=== PATIENT | female | born 1975 ===

== ENCOUNTER 2024-12-01 10:21 | Outpatient (CLI) | payer OTHER, SELFPAY ==
--- OUTSIDE RECORDS SUMMARY | 2024-12-01 10:50 | XMS_ITS | Clinical Summary ---
Author Organization [facility] [employer] Address [address] [place] [address] Care Team Providers Care Ppa Teacher Name Role Phone Jakub Ty MD Primary Care Provider [phone] Source Comments [facility] [employer],non-owned Affiliates and Associated Physician Practices is amultiple site organization consisting of ambulatory clinics and hospital sitesin [place], [place], [place] and [place]. This disclosure is being madepursuant to the Care Everywhere program and may not contain all information available regarding this patient. Last updated 18.[facility] [employer] Allergies No known active allergies Medications * Be aware that medications may not be up to date on this document. Alwaysverify current medications with the patient. Medication Sig Dispensed Refills Start Date End Date Status furosemide (Lasix) 20 MG tablet Take 1 (one) tablet by mouth once daily Active oxyBUTYnin (Ditropan) 5 MG tablet Take 1 (one) tablet by mouth 2 times daily Active potassium chloride ER (Klor-Con M) 10 MEQ tablet Take 1 (one) tablet by mouth once daily Active Active Problems Problem Noted Date Diagnosed Date Endometrial cancer 02/06/2024 Encounters Date Type Department Care Team Description 09/17/2024 Telephone [facility] [address] [place] [address] Suze Maurice RN Follow-up 09/09/2024 11:30 AM REPAIR ARMATURE WINDER HELPER Office Visit [facility] [address] [place] [address] Jaleel Mcmillan MD Endometrial cancer (HCC) (Primary Dx) 09/09/2024 Orders Only [facility] [address] [place] [address] Suze Maurice RN Retained organic fragments 09/09/2024 Orders Only [facility] [address] [place] [address] Suze Maurice RN Endometrial cancer (HCC) 09/09/2024 Travel from Last 3 Months Social History Tobacco Use Types Packs/Day Years Used Date Smoking Tobacco: Never Smokeless Tobacco: Former Quit: 1990 Tobacco Cessation:Counseling Given: Not Answered Alcohol Use Standard Drinks/Week Comments Not Currently 0 (1 standard drink = 0.6 oz pur e alcohol) PHQ-2 Answer Date Recorded Patient Health Questionnaire-2 Score 0 02/24/2024 Sex and Gender Information Value Date Recorded Sex Assigned at Not on file Gender Identity Not on file Sexual Orientation Not on file Last Filed Vital Signs Vital Sign Reading Time Taken Comments Blood Pressure 118/70 09/09/2024 11:39 AM REPAIR ARMATURE WINDER HELPER Pulse 84 02/24/2024 8:34 AM CDT Temperature 36.5 ??C (97.7 ??F) 02/07/2024 5:17 AM CD T Respiratory Rate 18 02/07/2024 5:17 AM CDT Oxygen Saturation 97% 02/07/2024 5:17 AM CDT Inhaled Oxygen Concentration - - Weight 151.2 kg (333 lb 6.4 oz) 024 11:39 AM REPAIR ARMATURE WINDER HELPER Height 175.3 cm (5' 9 ) 09/09/2024 11:3 9 AM REPAIR ARMATURE WINDER HELPER Body Mass Index 49.23 09/09/2024 11:39 AM REPAIR ARMATURE WINDER HELPER Plan of Treatment Upcoming Encounters Date Type Department Care Team (Late st Contact Info) Description 03/10/2025 10:00 AM CDT Office Visit [facility] [address] [place] [address] Jaleel Mcmillan MD [address] [place] [address] Health Maintenance Due Date Last Done Comments COLOGUARD (AGES 45-75) - COL ON CA SCREENING 1973 COLON MONITORING 1973 COLONOSCOPY - COLON CA SCREENING 1973 CT COLONOGRAPHY - COLON CA SCREENING 1973 Colorectal Cancer Screening 1973 FIT - COLON CA SCREENING 1973 FLEX SIG - COLON CA SCREENING 1973 LIPID TESTING 1973 HIV SCREENING 01/26/1988 HEPATITIS C SCREENING 01/21/1991 DTAP/TDAP/TD VACCINES (1 - Tdap) 01/26/1992 HEPATITIS B VACCINE (1 of 3 - 19+ 3-dose series) 01/26/1992 PNEUMOCOCCAL VACCINE 50+ (1 of 1 - PCV) 2023 ZOSTER VACCINE (1 of 2) 2023 COVID-19 VACCINE (3 - 2023-2 5 season) 2024 09/29/2021, 09/08/2021 INFLUENZA VACCINE (#1) 2024 DEPRESSION SCREENING 10/28/2024 02/24/2024 MAMMOGRAM 04/06/2026 04/06/2024, 04/06/2024 SCREENING FOR DIABETES 02/06/2027 02/07/2024 HIB VACCINE Aged Out No longer eligi ble based on patient's age to complete this topic HPV VACCINE Aged Out No longer eligi ble based on patient's age to complete this topic MENINGOCOCCAL (Group B) VACCINE Aged Out No longer eligible b ased on patient's age to complete this topic MENINGOCOCCAL VACCINE Aged Out No zelda cynthia eligible based on patient's age to complete this topic PNEUMOCOCCAL VACCINE Aged Out No long er eligible based on patient's age to complete this topic Procedures Procedure Name Priority Date/Time Associated Diagnosis Comments BASIC METABOLIC PANEL (CALCIUM TOTAL) AM Draw 02/07/2024 4:19 AM CDT Endometrial cancer (HCC) from Last 3 Months or Most Recently Relevant to Health Maintenance Results * (ABNORMAL) BASIC METABOLIC PANEL (CALCIUM TOTAL) (02/07/2024 4:19 AM CDT) [facility] Signature Glucose 127(H) 70 - 105 mg/dL 02/07/2024 5:24 AM CDT [facility] Sodium 139 136 - 145 mmol/L 02/07/2024 5:24 AM CDT [facility] Potassium 4.5 3.5 - 5.1 mmol/L 02/07/2024 5:24 AM CDT [facility] Chloride 106 98 - 107 mmol/L 02/07/2024 5:24 AM CDT [facility] CO2 25 22 - 29 mmol/L 02/07/2024 5:24 AM CDT [facility] Calcium 8.6 8.4 - 10.4 mg/dL 02/07/2024 5:24 AM CDT [facility] Anion Gap 8 6 - 16 mmol/L 02/07/2024 5:24 AM CDT [facility] BUN 10 7 - 26 mg/dL 02/07/2024 5:24 AM CDT [facility] Creatinine 0.71 0.57 - 1.11 mg/dL 02/07/2024 5:24 AM CDT [facility] eGFR by CKD-EPI >90 >=90 mL/min/1.7 3 m2 02/07/2024 5:24 AM CDT [facility] Blood BLOOD SPECIMEN / Unknown Lab Venipuncture / Unknown 02/07/2024 4:19 AM CDT 02/07/2024 5:02 AM CDT Jaleel Mcmillan MD LAB - CHEMISTRY DYANA [facility] Organization Address City/State/ZIP Co de Phone Number [facility] [address] [phone] from Last 3 Months or Most Recently Relevant to Health Maintenance Care Teams Ppa Teacher Relationship Specialty Start Date End Date Jakub Ty MD [address] [place] [id number] PCP - General Internal Medicine 09/25/23
--- OUTSIDE RECORDS SUMMARY | 2024-12-01 10:50 | XMS_ITS | Referral Summary ---
Author Organization [facility] Address [address] [place] [address] Care Team Providers Care Reproductive Surgeon Name Role Phone Jakub Ty MD Primary Care Provider [phone] Source Comments [facility],non-owned Affiliates and Associated Physician Practices is amultiple site organization consisting of ambulatory clinics and hospital sitesin [place], [place], [place] and [place]. This disclosure is being madepursuant to the Care Everywhere program and may not contain all information available regarding this patient. Last updated 18.[facility] [employer] Encounters Date Type Department Care Team Description 09/17/2024 Telephone [facility] [email or web address] [place] [phone] Suze Maurice, RN Follow-up 09/09/2024 Orders Only [facility] [address] [place] [phone] Suze Maurice, RN Retained organic fragments 09/09/2024 Orders Only [facility] [address] [place] [phone] Suze Maurice, ALF Endometrial cancer (HCC) 09/09/2024 Travel 09/09/2024 11:30 AM DRAMATIC TEACHER Office Visit [facility] [address] [place] [address] Jaleel Mcmillan MD Endometrial cancer (HCC) (Primary Dx) from Last 3 Months Allergies No known active allergies Medications * [...] Noted Date Diagnosed Date Endometrial cancer 02/06/2024 Social History Tobacco Use Types Packs/Day Years [...] Comments Blood Pressure 118/70 09/09/2024 11:39 AM DRAMATIC TEACHER Pulse 84 02/24/2024 8:34 AM CDT Temperature 36.5 ??C (97.7 ??F) 02/07/2024 5:17 AM CD T Respiratory Rate 18 02/07/2024 5:17 AM CDT Oxygen Saturation 97% 02/07/2024 5:17 AM CDT Inhaled Oxygen Concentration - - Weight 151.2 kg (333 lb 6.4 oz) 024 11:39 AM DRAMATIC TEACHER Height 175.3 cm (5' 9 ) 09/09/2024 11:3 9 AM DRAMATIC TEACHER Body Mass Index 49.23 09/09/2024 11:39 AM DRAMATIC TEACHER Plan of Treatment Upcoming Encounters Date Type Department Care Team (Late st Contact Info) Description 03/10/2025 10:00 AM CDT Office Visit [facility] [address] [facility] [address] [place] [address] Jaleel Mcmillan MD [address] [facility] [address] [place] [address] Procedures Procedure Name Priority Date/Time Associated Diagnosis Comments BASIC METABOLIC PANEL (CALCIUM TOTAL) AM Draw 02/07/2024 4:19 AM CDT Endometrial cancer (HCC) from Last 3 Months or Most Recently Relevant to Health Maintenance Results * (ABNORMAL) BASIC METABOLIC PANEL (CALCIUM TOTAL) (02/07/2024 4:19 AM CDT) Glucose 127(H) 70 - 105 mg/dL 02/07/2024 5:24 AM CDT [facility] Sodium 139 136 - 145 mmol/L 02/07/2024 5:24 AM CDT [facility] Potassium 4.5 3.5 - 5.1 mmol/L 02/07/2024 5:24 AM CDT [facility] Chloride 106 98 - 107 mmol/L 02/07/2024 5:24 AM CDT [facility] CO2 25 22 - 29 mmol/L 02/07/2024 5:24 AM CDT [facility] Calcium 8.6 8.4 - 10.4 mg/dL 02/07/2024 5:24 AM CDT [facility] Anion Gap 8 6 - 16 mmol/L 02/07/2024 5:24 AM CDT [facility] BUN 10 7 - 26 mg/dL 02/07/2024 5:24 AM CDT [facility] Creatinine 0.71 0.57 - 1.11 mg/dL 02/07/2024 5:24 AM CDT [facility] eGFR by CKD-EPI >90 >=90 mL/min/1.7 3 m2 02/07/2024 5:24 AM CDT [facility] Blood BLOOD SPECIMEN / Unknown Lab Venipuncture / Unknown 02/07/2024 4:19 AM CDT 02/07/2024 5:02 AM CDT Jaleel Mcmillan MD LAB - CHEMISTRY DYANA [facility] [place] Organization Address City/State/ZIP Co de Phone Number [facility] [address] [place] [address] from Last 3 Months or Most Recently Relevant to Health Maintenance Care Teams Reproductive Surgeon Relationship Specialty Start Date End Date Jakub Ty MD [address] [place] [id number] PCP - General Internal Medicine 09/25/23
--- OUTSIDE RECORDS SUMMARY | 2024-12-01 10:50 | XMS_ITS | Patient Health Summary ---
Author Organization [facility] Address [address] [place] [address] Care Team Providers Care Industrial Electrical Engineer Name Role Phone Jakub Ty MD Primary Care Provider [phone] Note from [facility],non-owned Affiliates and Associated Physician Practices is amultiple site organization consisting of ambulatory clinics and hospital sitesin [place], [place], [place] and [place]. This disclosure is being madepursuant to the Care Everywhere program and may not contain all information available regarding this patient. Last updated 18.[facility] Allergies No known active allergies Medications * Be aware that medications may not be up to date on this document. Alwaysverify current medications with the patient. * furosemide (Lasix) 20 MG tablet Take 1 (one) tablet by mouth once daily * oxyBUTYnin (Ditropan) 5 MG tablet Take 1 (one) tablet by mouth 2 times daily * potassium chloride ER (Klor-Con M) 10 MEQ tablet Take 1 (one) tablet by mouth once daily Active Problems Problem Noted Date Diagnosed Date [...] Comments Blood Pressure 118/70 09/09/2024 11:39 AM SCHOOL DIRECTOR Pulse 84 02/24/2024 8:34 AM CDT Temperature 36.5 ??C (97.7 ??F) 02/07/2024 5:17 AM CD T Respiratory Rate 18 02/07/2024 5:17 AM CDT Oxygen Saturation 97% 02/07/2024 5:17 AM CDT Inhaled Oxygen Concentration - - Weight 151.2 kg (333 lb 6.4 oz) 024 11:39 AM SCHOOL DIRECTOR Height 175.3 cm (5' 9 ) 09/09/2024 11:3 9 AM SCHOOL DIRECTOR Body Mass Index 49.23 09/09/2024 11:39 AM SCHOOL DIRECTOR Procedures * MRI ABDOMEN WWO CONTRAST(Performed 03/26/2024) Performed for Liver lesion, right lobe * CREATININE - POCT INTERFACED(Performed 03/26/2024) * CARDIAC RHYTHM STRIP ORDER(Performed 02/10/2024) * MAGNESIUM BLOOD(Performed 02/07/2024) Performed for Endometrial cancer (HCC) * BASIC METABOLIC PANEL (CALCIUM TOTAL)(Performed 02/07/2024) Performed for Endometrial cancer (HCC) * CBC W AUTO DIFFERENTIAL(Performed 02/07/2024) Performed for Endometrial cancer (HCC) * CBC W AUTO DIFFERENTIAL(Performed 02/06/2024) Performed for Endometrial cancer (HCC) * PATHOLOGY TISSUE EXAM (STL)(Performed 02/06/2024) Performed for Diagnosis unknown * CYTOLOGY NON-CONSTRUCTION PROJECT MANAGER PANEL (STL)(Performed 02/06/2024) Performed for Diagnosis unknown * ENDOTRACHEAL TUBE NOTE(Performed 02/06/2024) * TN TRACK TEMPLATE MAKER RQR USE ROBOTIC SURG SYS(Performed 02/06/2024) Performed for Diagnosis unknown * BLOOD TYPE VERIFICATION(Performed 02/06/2024) * TYPE + SCREEN PANEL(Performed 02/06/2024) Performed for Endometrial cancer (HCC) Results * MRI ABDOMEN WWO CONTRAST (03/26/2024 2:40 PM CDT) Anatomical Region Laterality Modality Abdomen Magnetic Resonan ce 03/26/2024 2:38 PM CDT Impressions 03/26/2024 3:51 PM CDT Impression: 1. Benign-appearing hepatic observations as detailed above including an apparent fat-containing subcentimeter lesion at the dome of segment 8, likely corresponding to observation seen on recent CT. No evidence of metastatic disease or lymphadenopathy identified within the abdomen. 2. Small volume free fluid within the abdomen, likely postsurgical. Report dictated by Shaheen Clemons M.D. (residential glazier). > Dictated by Shaheen Clemons (Tree Deadener) 03/26/2024 2:38 PM I, Jose Mendez have personally reviewed and interpreted this examination/study. > Interpreting Provider: Jose Mendez on 03/26/2024 3:51 PM Narrative 03/26/2024 3:51 PM CDT PROCEDURE: ??MRI ABDOMEN WWO CONTRAST, DATE/TIME OF EXAM: ??03/26/2024 2:40 PM, LOCATION ??[facility] INDICATION: K76.9: Liver lesion, right lobe ADDITIONAL CLINICAL INFORMATION: Ordering Provider Reason For Exam: ??SEE MEDIA ORDER Technologist Note: Additional: ??History of grade 1 endometrial carcinoma status post total laparoscopic hysterectomy, bilateral salpingo-oophorectomy, and bilateral sentinel lymph node biopsy 02/06/2024. 6 x 10 mm hypodense lesion seen within the right hemiliver near the dome on prior CT. COMPARISON: Report from outside CT chest abdomen pelvis with contrast 11/13/2023.. Images are not available for review at the time of interpretation. TECHNIQUE: MRI of the abdomen was performed prior to and following the uneventful administration of 10 mL of Eovist intravenous gadolinium contrast according to standard protocol. Findings Lower Chest: Normal. Hepatobiliary system Liver morphology: No liver surface nodularity is seen to suggest hepatic cirrhosis. Steatosis: There is mild diffuse hepatic steatosis without evidence of cirrhosis. Varices: None Spleen: Normal. Small splenule present. Ascites: Small volume free fluid is seen adjacent to the liver and along the left paracolic gutter. Focal liver observations Within the dome of hepatic segment 8 adjacent to the diaphragm there is a 9 x 9 mm nonenhancing minimally T2 hyperintense lesion with peripheral signal dropout on the out of phase imaging likely representing a benign fat-containing lesion (series 5 image 20, series 4 image 9). This is favored to correspond with the hypodense lesion on prior CT. There is a 4 x 7 mm arterially enhancing observation within hepatic segment 7/8 which is not seen on any other sequence, likely representing a vascular shunt. (series 9 image 39). Otherwise no suspicious hepatic observations. Hepatic vasculature Portal and hepatic veins: Normally patent. Arterial anatomy: The hepatic arterial anatomy is conventional. Gallbladder and bile ducts Gallbladder: The gallbladder is normal without evidence of wall thickening, pericholecystic fluid, or gallstones. Bile ducts: The intrahepatic and extrahepatic bile ducts are nondilated. Retroperitoneum Pancreas: Normal. Adrenals: Normal. Kidneys: Normal. Lymph nodes: No lymphadenopathy in the abdomen or pelvis. Gastrointestinal: Imaged bowel and mesentery are normal. Other findings: The uterus is surgically absent. A T2 bright tubular structure within the anterior soft tissues is compatible with a varix. Procedure Note Jose Mendez MD - 03/26/2024 PROCEDURE: MRI ABDOMEN WWO CONTRAST, DATE/TIME OF EXAM: 03/26/2024 2:40 PM, LOCATION [facility] INDICATION: K76.9: Liver lesion, right lobe ADDITIONAL CLINICAL INFORMATION: Ordering Provider Reason For Exam: SEE MEDIA ORDER Technologist Note: Additional: History of grade 1 endometrial carcinoma status post total laparoscopic hysterectomy, bilateral salpingo-oophorectomy, andbilateral sentinel lymph node biopsy 02/06/2024. 6 x 10 mm hypodense lesion seen within the right hemiliver near the dome on prior CT. COMPARISON: Report from outside CT chest abdomen pelvis with contrast 11/13/2023.. Images are not available for review at the time of interpretation. TECHNIQUE: MRI of the abdomen was performed prior to and following the uneventful administration of 10 mL of Eovist intravenous gadolinium contrastaccording to standard protocol. Findings Lower Chest: Normal. Hepatobiliary system Liver morphology: No liver surface nodularity is seen to suggest hepatic cirrhosis. Steatosis: There is mild diffuse hepatic steatosis without evidence of cirrhosis. Varices: None Spleen: Normal. Small splenule present. Ascites: Small volume free fluid is seen adjacent to the liver and along the left paracolic gutter. Focal liver observations Within the dome of hepatic segment 8 adjacent to the diaphragm there is a9 x 9 mm nonenhancing minimally T2 hyperintense lesion with peripheralsignal dropout on the out of phase imaging likely representing a benign fat-containing lesion (series 5 image 20, series 4 image 9). This is favored to correspond with the hypodense lesion on prior CT. There is a 4 x 7 mm arterially enhancing observation within hepaticsegment 7/8 which is not seen on any other sequence, likely representing avascular shunt. (series 9 image 39). Otherwise no suspicious hepatic observations. Hepatic vasculature Portal and hepatic veins: Normally patent. Arterial anatomy: The hepatic arterial anatomy is conventional. Gallbladder and bile ducts Gallbladder: The gallbladder is normal without evidence of wallthickening, pericholecystic fluid, or gallstones. Bile ducts: The intrahepatic and extrahepatic bile ducts are nondilated. Retroperitoneum Pancreas: Normal. Adrenals: Normal. Kidneys: Normal. Lymph nodes: No lymphadenopathy in the abdomen or pelvis. Gastrointestinal: Imaged bowel and mesentery are normal. Other findings: The uterus is surgically absent. A T2 bright tubular structure withinthe anterior soft tissues is compatible with a varix. Impression: 1. Benign-appearing hepatic observations as detailed above including an apparent fat-containing subcentimeter lesion at the dome of segment 8, likely corresponding to observation seen on recent CT. No evidence of metastatic disease or lymphadenopathy identified within the abdomen. 2. Small volume free fluid within the abdomen, likely postsurgical. Report dictated by Shaheen Clemons M.D. (residential glazier). > Dictated by Shaheen Clemons (Tree Deadener) 03/26/2024 2:38 PM IJose have personally reviewed and interpreted this examination/study. > Interpreting Provider: Jose Mendez on 03/26/2024 3:51 PM Jakub Ty MD MR ORDERABLES * (ABNORMAL) CREATININE - POCT INTERFACED (03/26/2024 1:14 PM CDT) Creatinine POCT 0.95 0.30 - 1.30 mg/dL 03/26/2024 1:17 PM CDT [facility] eGFR 73(L) >=90 mL/min/1.7 3 m2 03/26/2024 1:17 PM CDT [facility] Blood BLOOD SPECIMEN / Unknown 03/26/2024 1:14 PM CDT 03/26/2024 1:17 PM CDT Jakub Ty MD LAB - POINT OF CARE ORDERABLES [facility] [address] [place] [address], [facility] [phone] * CARDIAC RHYTHM STRIP ORDER (02/10/2024 9:01 PM CDT) Narrative 02/10/2024 9:01 PM CDT Ordered by an unspecified provider. Scanned Document CARDIAC SERVICES ORD ERABLES * (ABNORMAL) CBC W AUTO DIFFERENTIAL (02/07/2024 4:19 AM CDT) Only the most recent of2 resultswithin the time period is included. WBC 14.8(H) 4.0 - 10.7 x10E9/L 02/07/2024 5:07 AM CDT [facility] RBC Count 4.49 3.90 - 5.20 x10E12/L 02/07/2024 5:07 AM CDT [facility] Hemoglobin 12.6 11.9 - 15.8 g/dL 02/07/2024 5:07 AM CDT [facility] Hematocrit 40.3 34.8 - 46.1 % 02/07/2024 5:07 AM CDT [facility] MCV 89.8 80.0 - 98.0 fL 02/07/2024 5:07 AM CDT [facility] MCH 28.1 26.7 - 33.6 pg 02/07/2024 5:07 AM CDT [facility] MCHC 31.3(L) 31.7 - 36.3 g/dL 02/07/2024 5:07 AM CDT [facility] RDW-CV 13.8 11.3 - 14.8 % 02/07/2024 5:07 AM CDT [facility] Platelet Count 267 150 - 420 x10E9/L 02/07/2024 5:07 AM CDT [facility] MPV 9.2 7.8 - 11.4 fL 02/07/2024 5:07 AM CDT [facility] Neutrophil % 84.9(H) 41.0 - 74.0 % 02/07/2024 5:07 AM CDT [facility] Lymphocyte % 9.9(L) 17.0 - 47.0 % 02/07/2024 5:07 AM CDT [facility] Monocyte % 4.7 3.0 - 11.0 % 02/07/2024 5:07 AM CDT [facility] Eosinophil % 0.0 0.0 - 7.0 % 02/07/2024 5:07 AM CDT [facility] Basophil % 0.1 0.0 - 1.6 % 02/07/2024 5:07 AM CDT [facility] Immature Granulocytes % 0.4 0.0 - 1.0 % 02/07/2024 5:07 AM CDT [facility] Neutrophil Absolute 12.55(H) 1.60 - 7.50 x10E9/L 02/07/2024 5:07 AM CDT [facility] Lymphocyte Absolute 1.46 1.00 - 4.40 x10E9/L 02/07/2024 5:07 AM CDT [facility] Monocyte Absolute 0.70 0.15 - 1.00 x10E9/L 02/07/2024 5:07 AM CDT [facility] Eosinophil Absolute 0.00 0.00 - 0.60 x10E9/L 02/07/2024 5:07 AM CDT [facility] Basophil Absolute 0.02 0.00 - 0.13 x10E9/L 02/07/2024 5:07 AM CDT [facility] Blood BLOOD SPECIMEN / Unknown Lab Venipuncture / Unknown 02/07/2024 4:19 AM CDT 02/07/2024 5:02 AM CDT Jaleel Mcmillan MD LAB - HEMATOLOGY ORD ERABLES [facility] [address] [place] [address] * (ABNORMAL) BASIC METABOLIC PANEL (CALCIUM TOTAL) (02/07/2024 4:19 AM CDT) [facility] Glucose 127(H) 70 - 105 mg/dL 02/07/2024 5:24 AM CDT [facility] Sodium 139 136 - 145 mmol/L 02/07/2024 5:24 AM CDT [facility] Potassium 4.5 3.5 - 5.1 mmol/L 02/07/2024 5:24 AM CDT [facility] Chloride 106 98 - 107 mmol/L 02/07/2024 5:24 AM CDT [facility] CO2 25 22 - 29 mmol/L 02/07/2024 5:24 AM CDT [facility] Calcium 8.6 8.4 - 10.4 mg/dL 02/07/2024 5:24 AM CDT [facility] Anion Gap 8 6 - 16 mmol/L 02/07/2024 5:24 AM CDT [facility] BUN 10 7 - 26 mg/dL 02/07/2024 5:24 AM CDT [facility] Creatinine 0.71 0.57 - 1.11 mg/dL 02/07/2024 5:24 AM CDT [facility] eGFR by CKD-EPI >90 >=90 mL/min/1.7 3 m2 02/07/2024 5:24 AM CDT [facility] Blood BLOOD SPECIMEN / Unknown Lab Venipuncture / Unknown 02/07/2024 4:19 AM CDT 02/07/2024 5:02 AM CDT Jaleel Mcmillan MD LAB - CHEMISTRY DYANA BROWNING Performing Organization Address City/[facility] Co de Phone Number [facility] [address] [place] [phone] * MAGNESIUM BLOOD (02/07/2024 4:19 AM CDT) Magnesium 2.3 1.6 - 2.6 mg/dL 02/07/2024 5:24 AM CDT [facility] Blood BLOOD SPECIMEN / Unknown Lab Venipuncture / Unknown 02/07/2024 4:19 AM CDT 02/07/2024 5:02 AM CDT Jaleel Mcmillan MD LAB - CHEMISTRY DYANA BROWNING Performing Organization Address [facility] Co de Phone Number [facility] [address] [place] [phone] * PATHOLOGY TISSUE EXAM (STL) (02/06/2024 2:14 PM CDT) Case Report Surgical Pathology Report ? Case: [id number] ? Authorizing Provider: ??Jaleel Mcmillan MD ?Collected: ? 02/06/2024 02:14 PM ? Ordering Location: ? [facility] ? Received: ?02/07/2024 08:20 AM ? Pathologist: ? Kate Cervantes MD ? Specimens: ?? A) - Bergen Lymph Node, right sentinel lymph node, right external illiac ? B) - [place] Lymph Node, left sentinel lymph node, left ??external illiac ? C) - Uterus w BSO, uterus, cervix, bilateral tubes and ovaries ? 02/12/2024 2:05 PM CDT [facility] Final Diagnosis Lymph node, right external iliac, sentinel lymph node dissection (A) - No evidence of malignancy in one lymph node (0/1) Lymph nodes, left external iliac, sentinel lymph node dissection (B) - No evidence of malignancy in two lymph nodes (0/2) Uterus, hysterectomy (C) - Endometrioid adenocarcinoma, FIGO grade 1, confined to the endometrium, without lymphvascular space invasion, not involving lower uterine segment or cervix - Adenomyosis Ovary, left, oophorectomy (C) - No evidence of malignancy - Right ovary not identified (right adnexal tissue submitted entirely for histologic examination) Fallopian tubes, bilateral, salpingectomy (C) - Mild hydrosalpinx - No evidence of malignancy 02/12/2024 2:05 PM T [facility] Clinical History The patient is a 49-year-old woman with endometrial cancer. Operative procedure: hysterectomy, bilateral salpingo-oophorectomy , sentinel lymph node dissection. 02/12/2024 2:05 PM T [facility] Gross Description The requisition and specimen label(s) are identified with the patient's name, Tish Robles. Received in formalin, specimen A , right sentinel lymph node is a 4.5 x 2.5 x 1.5 cm yellow-harmon lobulated fibroadipose tissue with possible 3.0 x 1.5 x 1.0 cm matted lymph node. Sectioning of the lymph node shows pink-harmon cut surface. Specimen is entirely submitted in cassette as follows: A1-A4 1 lymph node serially sectioned, A5-remaining adipose tissue. Received in formalin, specimen B sentinel lymph node is a 2.5 x 1.5 x 0.9 cm yellow-harmon fibroadipose tissue with 0.2 x 0.5 cm lymph node in greatest dimension. Specimen is entirely submitted in cassette B1-1 lymph node, and B2-1 lymph node. Received in formalin, specimen C uterus, cervix, bilateral is a 3 308.2 g 9.0 x 7.5 x 4.5 cm disrupted uterus with attached right fallopian tube and ovary. The right fallopian tube is 4.0 cm length and 0.5 cm diameter and right ovary is 1.0 x 1.0 x 0.5 cm. There is a separate right fallopian tube measures 2.0 cm length and 0.6 cm diameter with attached yellow-harmon soft possible left ovary measures 1.3 x 1.0 x 0.6 cm. Separate 4.0 cm length and 2.0 cm diameter cervix with 2.0 x 1.5 cm ectocervical mucosa with mild congestion and 0.9 cm patent cervical os. The soft tissue margin is inked green. The endometrial cavity is 4.0 x 3.0 cm with polanco-harmon white irregular surface with 0.3 cm thick endometrial mass. Myometrium is 2.5 cm thick at the fundus and sectioning shows mild trabeculation. The serosa of left fallopian tube is purple-harmon and smooth and sectioning shows dilated lumen with no distinct lesion or mass. The ovary is purple-harmon to polanco firm lobulated and sectioning shows unremarkable cut surface. The serosa of right fallopian tube is purple-harmon smooth with fimbria and sectioning shows unremarkable cut surface. The right ovary is yellow-harmon soft in appearance of adipose tissue with no distinct appearance of ovary and sectioning shows yellow-harmon soft cut surface. Furniture Refinisher section is submitted in a cassette as follows C1-possible anterior cervix, C2-possible anterior lower uterine segment, C3-possible posterior cervix, C4-possible posterior lower uterine segment. C5-C7 anterior endomyometrium with mass, C8-C10 posterior endomyometrium with endometrial mass, W30-sljx fallopian tube, W30-ivrq ovary, C 13-right fallopian tube with fimbria, G80-kcqjxbn tissue with possible right ovary.AU. After initial microscopic examination, additional sections are submitted as follows: C15-C22 remaining anterior endometrium entirely submitted, C23-C29 - remaining posterior endometrium entirely submitted, C30-C34 right adnexal tissue entirely submitted. 02/12/2024 2:05 PM [facility] Microscopic Description Microscopic examination substantiates the above diagnosis. Multiple H&E levels and a pankeratin immunostain (controls adequate) were evaluated on parts A and B, per sentinel lymph node protocol, showing no evidence of metastatic carcinoma. Histologic sections of the endometrium (part C) show microscopic foci of adenocarcinoma with some mucinous features. Immunostains (controls adequate) were performed to further evaluate the tumor cells, which are reactive for PAX8 and ER. p53 shows wild-type pattern reactivity in the tumor cells. The morphologic and immunophenotypic features support the diagnosis. Mismatch repair (MMR) enzyme immunohistochemical staining results: MLH1: Intact PMS2: Intact MSH2: Intact MSH6: Intact Panel interpretation: Proficient (pMMR) Immunohistochemical stains (IHC; single antibody stain procedures; [place] MMR RdDx Panel) have been performed on part C for the DNA mismatch repair (MMR) enzymes MLH1, MSH2, MSH6, and PMS2. These show retained nuclear expression in the tumor cells equivalent to that seen in adjacent normal tissue, a staining pattern that is usually not associated with a defect in mismatch repair function. Normal expression of all four proteins suggests this particular cancer is unlikely to be due to a hereditary germline mutation in the genes known to be associated with Fang Syndrome. Clinical correlation is required. IHC is a reliable measure of DNA mismatch repair status but is neither completely sensitive nor specific and has limitations. 02/12/2024 2:05 PM [facility] Pathologist Location at [facility] 02/12/2024 2:05 PM [facility] Disclaimer All histochemical and/or immunohistochemical results are interpreted with controls that demonstrate appropriate staining reactions before reporting results. Note on use of immunocytochemistry reagents: This test was developed and its performance characteristic determined by [facility], Department of Laboratory Medicine. It has not been cleared or approved by the U.S. Food and Drug Administration (FDA). The FDA has determined that such clearance or approval is not necessary. The test is used for clinical purpose. It should not be regarded as investigational or for research. This laboratory is certified to perform high complexity testing. The performance characteristics of the IHC/RADHA assays have been validated on formalin-fixed paraffin embedded tissues only. The assays have not been validated on decalcified tissues. Results should be interpreted with caution. 02/12/2024 2:05 PM [facility] Synoptic Report ENDOMETRIUM ENDOMETRIUM - All Specimens 8th Edition - Protocol posted: 10/09/2023 SPECIMEN ?? Procedure: ?Total hysterectomy and bilateral salpingo-oophorectomy TUMOR ?? Histologic Type: ?Endometrioid carcinoma, NOS ?? Histologic Grade: ?FIGO grade 1 ?? Myometrial Invasion: ?Not identified ?? Uterine Serosa Involvement: ?Not identified ?? Lower Uterine Segment Involvement: ?Not identified ?? Cervical Stromal Involvement: ?Not identified ?? Other Tissue / Organ Involvement: ?Not identified ?? The International System for Reporting Serous Fluid Cytopathology: ?Negative for malignancy (NFM) ?? Lymphatic and / or Vascular Invasion: ?Not identified REGIONAL LYMPH NODES ?? Regional Lymph Node Status: ? : ?All regional lymph nodes negative for tumor cells ? Lymph Nodes Examined: ? Total Number of Pelvic Nodes Examined: ?2 ? Number of Pelvic [place] Nodes Examined: ?2 ? Total Number of Para-aortic Nodes Examined: ?0 pTNM CLASSIFICATION (AJCC 8th Edition) ?? Reporting of pT, pN, and (when applicable) pM categories is based on information available to the pathologist at the time the report is issued. As per the AJCC (Chapter 1, 8th Ed.) it is the managing physician? s responsibility to establish the final pathologic stage based upon all pertinent information, including but potentially not limited to this pathology report. ?? pT Category: ?pT1a ?? pN Category: ?pN0 02/12/2024 2:05 PM CDT [facility] Embedded Images 02/12/2024 2:05 PM CDT [facility] Pathology/Cytology SPECIMEN FROM SENTINEL LYMPH NODE / Unknown 02/06/2024 2:14 PM CDT 02/07/2024 8:20 AM CDT Comment:Pre-op diagnosis: Diagnosis unknown [R69] Miscellaneous samples (specimen) SPECIMEN FROM SENTINEL LYMPH NODE / Unknown 02/06/2024 2:15 PM CDT 02/07/2024 8:20 AM CDT Comment:Pre-op diagnosis: Diagnosis unknown [R69] Miscellaneous samples (specimen) HYSTERECTOMY AND BILATERAL SALPINGO-OOPHORECTO MY SPECIMEN / Unknown 02/06/2024 3:02 PM CDT 02/07/2024 8:20 AM CDT Comment:Pre-op diagnosis: Diagnosis unknown [R69] Jaleel Mcmillan MD LAB - PATHOLOGY/CYTO LOGY ORDERABLES Performing Organization Address [facility]/State/[facility] Co de Phone Number [facility] [address] [place], [place] [id number] * CYTOLOGY NON-CONSTRUCTION PROJECT MANAGER PANEL (STL) (02/06/2024 2:13 PM CDT) Case Report Cytology Non Bicycle Rental Clerk Report ? Case: [id number] ? Authorizing Provider: ??Jaleel Mcmillan MD ?Collected: ? 02/06/2024 02:13 PM ? Ordering Location: ? [facility] ? Received: ?02/07/2024 10:19 AM ? Pathologist: ? Tramaine Lee, ? MD ? Specimen: ?Pelvic Washings, pelvic washings ? 02/10/2024 11:49 AM [facility] Final Diagnosis Pelvic washing: - Sparse bland mesothelium - No carcinoma identified 02/10/2024 11:49 AM [facility] Clinical History Per operative report, grade 1 adenocarcinoma of the endometrium. 02/10/2024 11:49 AM [facility] Gross Description 25 mL of clear fluid is received. A Pap-stained ThinPrep slide and H&E-stained cell block sections are produced. [facility] 02/10/2024 11:49 AM [facility] Microscopic Description The specimen is evaluated within a Pap-stained ThinPrep slide as well as H&E-stained cell block sections. There are a few mesothelial cells, most present in the ThinPrep slide. No large cohesive aggregates of malignant-appearing epithelium are identified. 02/10/2024 11:49 AM [facility] Pathologist Location at [facility] 02/10/2024 11:49 AM CDT [facility] Disclaimer All histochemical and/or immunohistochemical results are interpreted with controls that demonstrate appropriate staining reactions before reporting results. Note on use of immunocytochemistry reagents: This test was developed and its performance characteristic determined by [facility], Department of Laboratory Medicine. It has not been cleared or approved by the U.S. Food and Drug Administration (FDA). The FDA has determined that such clearance or approval is not necessary. The test is used for clinical purpose. It should not be regarded as investigational or for research. This laboratory is certified to perform high complexity testing. The performance characteristics of the IHC/RADHA assays have been validated on formalin-fixed paraffin embedded tissues only. The assays have not been validated on decalcified tissues. Results should be interpreted with caution. 02/10/2024 11:49 AM CDT [facility] Embedded Images 02/10/2024 11:49 AM CDT [facility] Pathology/Cytolo gy SPECIMEN OBTAINED BY PERITONEAL LAVAGE / Unknown 02/06/2024 2:13 PM CDT 02/07/2024 10:19 AM CDT Comment:Pre-op diagnosis: Diagnosis unknown [R69] Jaleel Mcmillan MD LAB - PATHOLOGY/CYTO LOGY ORDERABLES Performing Organization Address [facility]/State/[facility] Co de Phone Number [facility] [address] [phone] * ETT LINE PERFORMABLE (02/06/2024 1:22 PM CDT) Narrative Yeison Brush APRN-CRNA - 02/06/2024 1:22 PM CDT Yeison Brush APRN-CRNA ? 02/06/2024 ??1:24 PM Endotracheal Tube Placement: ? Patient Location: OR. Intubation Event Date/Time: ??02/06/2024 1:02 PM Procedure: intubation (36479). Procedure Section: ?? Sedation: under general anesthesia. Indications for Airway Management: ??anesthesia Induction: standard IV Patient Position: ??supine, sniffing and ramp/troop pillow Mask Ventilation: not attempted (RSI). Blade Type: Madelaine Blade Size: 4 Laryngoscopy View: grade 1 (full cords) Intubation Adjuncts: video laryngoscope Nasal Airway Size: 8 Tube: endotracheal tube Placement: oral Tube type: cuff - inflated Tube Size (MM): 8 Depth of Insertion (CM): 22 Measured From: teeth Cuff volume (mL): ??4 Cuff Inflated With: air Number of Attempts: 1. Placement Verified By: direct visualization, bilateral breath sounds, chest auscultation and CO2 monitor Tube secured with: ??adhesive tape. Dentition unchanged? ??Yes Difficult Airway? ??No. Procedure Start Time: 02/06/2024 1:02 PM. Staff Section ? Anesthesia Provider: Yeison Brush APRN-CANDY, Performed the procedure ? Provider #1: Harvinder Cat MD, Performed the procedure. ? Provider #2: Abeba Rodríguez, Performed the procedure. Harvinder Cat MD GENERAL ANESTHESIA O RDERABLES * BLOOD TYPE VERIFICATION (02/06/2024 12:02 PM CDT) ABO Rh O POS 02/06/2024 12:29 PM CDT [facility] Blood Bank BLOOD SPECIMEN / Unknown Venipuncture / Unknown 02/06/2024 12:02 PM CDT 02/06/2024 12:07 PM CDT Harvinder Cat MD LAB - BLOOD BANK ORD ERABLES [facility] [address] [phone] * TYPE + SCREEN PANEL (02/06/2024 11:35 AM CDT) ABO Rh O POS 02/06/2024 12:34 PM CDT [facility] Comment:No history; collect retype. Antibody Screen NEG 12:34 PM CDT [facility] Blood Bank BLOOD SPECIMEN / Unknown Venipuncture / Unknown 02/06/2024 11:35 AM CDT 02/06/2024 12:02 PM CDT Jaleel Mcmillan MD LAB - BLOOD BANK ORD ERABLES [facility] [address] [phone] Care Teams Industrial Electrical Engineer Relationship Specialty Start Date End Date Jakub Ty MD [address] [place] [id number] PCP - General Internal Medicine 09/25/23
--- NOTE | 2024-12-01 11:00 | NEURO_ITS ---
Impression: # Complains of right lower extremity numbness. Has severe edema. ? # Normal motor and sensory Nerve Conduction Study. ? # Needle/EMG exam limited because of severe edema but no neurogenic ? changes noted. ??Nerve Conduction Studies Anti Sensory Summary Table ?Stim Site NR Peak (ms) P-T Amp (?V) Site1 Site2 Delta-P (ms) Dist (cm) Daryn (m/s) Right Sup Fibular Anti Sensory (Ant Lat Mall) 14 cm ? 4.1 13.5 14 cm Ant Lat Mall 4.1 18.0 44 Right Sural Anti Sensory (Lat Mall) Calf ? 3.9 22.1 Calf Lat Mall 3.9 17.0 44 Motor Summary Table ?Stim Site NR Onset (ms) O-P Amp (mV) Site1 Site2 Delta-0 (ms) Dist (cm) Daryn (m/s) Right Peroneal Motor (Vastus Med) Ankle ? 3.0 3.7 Popit Ankle 7.5 36.0 48 Popit ? 10.5 3.2 Right Tibial Motor (Abd Barkley Brev) Ankle ? 3.4 2.3 Knee Ankle 8.1 39.0 48 Knee ? 11.5 1.1 F Wave Studies ?NR F-Lat (ms) L-R F-Lat (ms) Right Peroneal (Mrkrs) (EDB) ? 48.26 Right Tibial (Mrkrs) (Abd Hallucis) ? 49.01 EMG ?Side Muscle Nerve Root Ins Act Fibs Amp Dur Recrt Comment Right AntTibialis Dp Br Fibular L4-5 Nml Nml Decr Nml Nml Right Gastroc Tibial S1-2 Nml Nml Decr Nml Nml Right Fibularis Long Sup Br Fibular L5-S1 Nml Nml Decr Nml Nml Right Flex Dig Long Tibial L5-S2 Nml Nml Decr Nml Nml Right Ext Dig Brev Dp Br Fibular L5, S1 Nml Nml Decr Nml Nml Right QuadratusFem QuadFemoris L4-5, S1 Nml Nml Nml Nml Nml MTDD
== END 2024-12-01 10:22 | disposition home or self-care (01) ==
DX: R20.0 Anesthesia of skin (principal); R60.0 Localized edema
CPT/HCPCS: 95886; 95908